=== PATIENT | female | born 1995 | race Caucasian/White ===

== ENCOUNTER 2020-07-21 17:52 | Outpatient (CLI) | payer OTHER | END 2020-07-21 18:40 | disposition home or self-care (01) | LOC: D.LDO 17:52 | PROVIDERS: ATTEND Obstetrics & Gynecology | DX: O16.9 Unspecified maternal hypertension, unspecified trimester (principal) ==

== ENCOUNTER → 2020-07-24 11:52 | Outpatient (CLI) | payer OTHER | END | disposition home or self-care (01) | LOC: D.LDO 11:52 | PROVIDERS: ATTEND Obstetrics & Gynecology | DX: O35.9XX0 Maternal care for (suspected) fetal abnormality and damage, unspecified, not applicable or unspecified (principal) ==

== ENCOUNTER 2020-07-30 17:31 | Outpatient (CLI) | payer OTHER | END 2020-07-30 18:02 | disposition home or self-care (01) | LOC: D.LDO 17:31 | PROVIDERS: ATTEND Student in an Organized Health Care Education/Training Program | DX: O16.9 Unspecified maternal hypertension, unspecified trimester (principal) ==

== ENCOUNTER → 2020-08-02 12:30 | Outpatient (CLI) | payer OTHER | END | disposition home or self-care (01) | LOC: D.LDO 12:30 | PROVIDERS: ATTEND Obstetrics & Gynecology | DX: O13.9 Gestational [pregnancy-induced] hypertension without significant proteinuria, unspecified trimester (principal) ==

== ENCOUNTER → 2020-08-06 10:00 | Outpatient (CLI) | payer OTHER | END | disposition home or self-care (01) | LOC: D.LDO 10:00 | PROVIDERS: ATTEND Obstetrics & Gynecology | DX: O16.9 Unspecified maternal hypertension, unspecified trimester (principal) ==

== ENCOUNTER 2020-08-09 10:44 | Outpatient (CLI) | payer OTHER | END 2020-08-09 14:16 | disposition home or self-care (01) | LOC: D.LDO 10:44 | PROVIDERS: ATTEND Obstetrics & Gynecology | DX: O16.9 Unspecified maternal hypertension, unspecified trimester (principal) ==

== ENCOUNTER 2020-08-10 10:36 | Outpatient (CLI) | payer OTHER ==
--- NOTE | 2020-08-11 06:02 | NUR ---
PT RESTING WITH EYES CLOSED, RESP QUIET, NO DISTRESS NOTED, LEFT UNDISTURBED AT THIS TIME, FOB ASLEEP AT BEDSIDE
--- NOTE | 2020-08-11 06:57 | NUR ---
SHIFT REPORT TO DAY SHIFT
--- NOTE | 2020-08-11 13:59 | NUR ---
DR. BROWN ON UNIT. BPP AND MONITORING STRIP REVIEWED BY MD. CASTANO COMPLETED BY DR. BROWN. RESULTS REVIEWED. AT 1300 MD ORDERED TO DISCONTINUE IV FLUIDS. PT DENIES PAIN OR DISCOMFORT. PO FLUIDS PROVIDED. NO OTHER NEEDS OR CONCERNS VERBALIZED.
--- NOTE | 2020-08-11 15:09 | NUR ---
DR BROWN ON UNIT TO ASSESS PT. REVIEWED BPP, VITALS AND NST STRIP. FERN WAS COMPLETED AND RESULTS WERE REVIEWED BY DR. BROWN. FLUIDS D/C'D. PT INSTRUCTED TO RETURN TOMORROW 08/12/[address] YU TO ASSESS. ALL CARE AND DISCHARGE INSTRUCTIONS PROVIDED BY DR. BROWN. PIV DISCONTINUED AND DISCHARGE INSTRUCTIONS TO BE PREPARED. PT INSTRUCTED TO RETURN TO [facility] AND DELIVERY UNIT IF ANY NEEDS OR CONCERNS MAY ARISE. PT VERBALIZES UNDERSTANDING.
[2020-08-15 06:21] VITALS: BMI 26.6
== END 2020-08-11 15:15 | disposition home or self-care (01) ==
LOC: D.LD 10:36 → D.LDO 10:36 → D.LD 16:39 → D.LDO 08-11 15:15
PROVIDERS: ATTEND Obstetrics & Gynecology
DX: O36.5990 Maternal care for other known or suspected poor fetal growth, unspecified trimester, not applicable or unspecified (principal)

== ENCOUNTER 2020-08-12 09:08 | Outpatient (CLI) | payer OTHER ==
[2020-08-15 06:21] VITALS: BMI 26.6
== END 2020-08-12 09:50 | disposition home or self-care (01) ==
LOC: D.LDO 09:08
PROVIDERS: ATTEND Obstetrics & Gynecology
DX: O35.9XX0 Maternal care for (suspected) fetal abnormality and damage, unspecified, not applicable or unspecified (principal); O36.5990 Maternal care for other known or suspected poor fetal growth, unspecified trimester, not applicable or unspecified

== ENCOUNTER 2020-08-15 05:51 | Inpatient (IN) | payer OTHER ==
[~2020-08-15] VITALS: Ht 175.3 cm; Wt 81.6 kg
[2020-08-15 06:21] VITALS: BP 134/88; Ht 175.3 cm; Wt 81.6 kg
[2020-08-15] MEDS ORDERED: PRENAVITE1 TAB PO (06:21)
[2020-08-15 06:44] LABS: HEMATOCRIT 37.5 % (36.0-48.0); HEMOGLOBIN 12.7 g/dL (12-16); MCH 31.5 pg (26.0-34.0); MCHC 33.8 g/dL (31.0-37.0); MCV 93.3 fL (80.0-100.0); MEAN PLATELET VOLUME 8.4 fL (7.4-10.4); RBC 4.02 10x6/uL (4.00-5.40); RDW 13.8 % (11.5-14.5); WBC 17.5 10x3/uL (4.8-10.8)
[2020-08-15 06:50] LABS: UDS - AMPHET NEGATIVE QUAL (NEGATIVE); UDS - BARB NEGATIVE QUAL (NEGATIVE); UDS - BENZO NEGATIVE QUAL (NEGATIVE); UDS - COCAINE NEGATIVE QUAL (NEGATIVE); UDS - OPIATE NEGATIVE QUAL (NEGATIVE); UDS - PCP NEGATIVE QUAL (NEGATIVE); UDS - THC NEGATIVE QUAL (NEGATIVE)
[2020-08-16] VITALS (12 sets, daily range): BP systolic 116–135; BP diastolic 58–83
[2020-08-16 08:14] LABS: RAPID PLASMA REAGIN Non Reactive (Non Reactive)
--- NOTE | 2020-08-16 11:27 | NUR ---
L&D RN CALLED TO ROOM TO ASSESSFUNUS. SITUATION OK PER HER.
--- NOTE | 2020-08-16 11:45 | NUR ---
RECEIVED PT TO LD POST OP C/S, TO ROOM 1273. PT HAS LARGE WHITE DSG OVER LT INCISION, C/D/I. ICE PACK PLACED OVER GOWN TO INCISION. FUNDUS FIRM, U/2, SMALL RUBRA LOCHIA, NO CLOTS. NEW PERIPADS PLACED. SCDS ON AND CONNECTED. PT RATING PAIN TO INCISIONAL AREA 1/10. BLACK CATH IN PLACE DRAINING LIGHT YELLOW URINE, SEE I/O. SRUP X2, CALL LIGHT AND PHONE WITHIN REACH. SEE FLOWSHEET FOR FULL ASSESSMENT.
[2020-08-16 15:51] LABS: BASOPHILS 0.4 % (0-2); EOSINOPHILS 0.2 % (0-7); HEMATOCRIT 31.5 % (36.0-48.0); HEMOGLOBIN 10.5 g/dL (12-16); LYMPHOCYTES 11.7 % (15-50); MCH 31.5 pg (26.0-34.0); MCHC 33.5 g/dL (31.0-37.0); MEAN PLATELET VOLUME 8.4 fL (7.4-10.4); MONOCYTES 6.8 % (2-11); NEUTROPHILS 80.9 % (40-80); PLATELET COUNT 207 10x3/uL (130-400); RBC 3.35 10x6/uL (4.00-5.40); RDW 13.1 % (11.5-14.5); WBC 17.1 10x3/uL (4.8-10.8)
--- NOTE | 2020-08-16 18:00 | NUR ---
FUNDUS FIRM, U/2, SMALL RUBRA LOCHIA, NO CLOTS EXPELLED. INCISIONAL DSG REMAINS C/D/I. PERINEUM CLEANESED WITH WARM WET WASHCLOTHS, NEW PERIPADS/TOWELS/CHUX PROVIDED. PT'S POSITION CHANGED TO RIGHT LATERAL, PILLOW PLACED FOR SUPPORT AND COMFORT. NEW ICE PACK PLACED OVER GOWN TO INCISION, INCENTIVE SPIROMETER PROVIDED WITH INSTRUCTIONS. LARGE ICE WATER SERVED. SEE EMAR FOR ALL MEDS ADM BY THIS RN. WELDER PLASTIC BUTTON WITHIN REACH. SRUP X2, CALL LIGHT AND PHONE WITHIN REACH.
--- NOTE | 2020-08-16 19:00 | NUR ---
BEDSIDE SHIFT REPORT RCVD FROM Rebecca PETERS RN. PT LYING IN RT LATERAL TILT, PROPPED WITH PILLOWS FOR COMFORT AND SUPPORT. PT RATES PAIN 4/10 AT THIS TIME. EDUCATED ON SUPERVISOR FRAME SAMPLE AND PATTERN BUTTON. VERBALIZED UNDERSTANDING. EDUCATION PROVIDED ON I.S. WITH RETURN DEMONSTRATION UP TO 1999. FUNDUS FIRM, U/1. SCANT LOCHIA RUBRA NOTED TO PERIPAD. HR-RRR, PPP, LUNGS CTAB, BS ACTIVE X4. LARGE FOAM TAPED DRESSING NOTED TO LOWER ABD OVER LOW TRANSVERSE INCISION. DRESSING C/D/I. SCD'S IN PLACE, PUMP ON AND FUNCTIONING PROPERLY. PIV TO LEFT HAND PATENT WITH NO ERYTHEMA OR EDEMA NOTED TO SITE. SHIFT ASSESSMENT COMPLETED. SEE FLOWSHEET. BED LOW, WHEELS LOCKED, CL AND PHONE WITHIN REACH, SIDE RAILS UP X2.
--- NOTE | 2020-08-16 20:00 | NUR ---
CURRENT PITOCIN INFUSION COMPLETE. OLD BAG DOWN, NEW BAG UP TO PRESENT TUBING AND SET TO INFUSE AT 125ML/HR VIA ALARIS PUMP. PT DENIES NEEDS AT THIS TIME.
--- NOTE | 2020-08-16 22:40 | NUR ---
ROUNDS MADE. PT LYING SUPINE WITH HOB 30 DEGREES. RATES PAIN 5/10 AND REPORTS SHE JUST HIT HER [employer] BUTTON. 315 ML CLEAR YELLOW URINE EMPTIED FROM UROMETER. FUNDUS REMAINS FIRM U/1. FOB SITTING ON COUCH AT BEDSIDE ATTEMPTING TO FEED . INFANT UNWRAPPED AND FUSSY. FOB REPORTS HAVING TROUBLE GETTING TO FEED. INFANT SWADDLED IN BLANKET X1, DEMONSTRATION OF PROPER FEEDING TECHNIQUES AND POSITIONING OF WHILE FEEDING PROVIDED. PLACED BACK IN FOB'S ARMS AND HE CONTINUED FEEDING. NO FURTHER NEEDS VOICED AT THIS TIME.
--- NOTE | 2020-08-17 00:29 | NUR ---
PT RATES PAIN 4/10 AT THIS TIME. TORADOL GIVEN SIVP PER ORDERS. SEE EMAR FOR ADMINISTRATION. PT CURRENTLY FEEDING . ADVISE TO CALL OUT RESTORATION OFFICER LIGHT WHEN FINISHED WITH INFANT FEEDING FOR LOCHIA ASSESSMENT. UNDERSTANDING VERBALIZED.
--- NOTE | 2020-08-17 01:10 | NUR ---
PT RINGS CALL LIGHT REPORTING SHE IS FINISHED FEEDING . RN TO BEDSIDE. PT REPOSITIONED TO LT LATERAL TILT, PROPPED WITH PILLOWS FOR COMFORT AND SUPPORT. MOD LOCHIA RUBRA NOTED TO PERIPAD. PAD CHANGED. 250 ML CLEAR YELLOW URINE EMPTIED FROM UROMETER. PT DENIES FURTHER NEEDS AT THIS TIME. WILL CONTINUE TO MONITOR.
[2020-08-17 03:00] VITALS: BP 122/74
--- NOTE | 2020-08-17 03:07 | NUR ---
ROUNDS MADE. PT AWAKENED UPON NURSE ENTERING ROOM. PT DENIES NEEDS AT THIS TIME.
--- NOTE | 2020-08-17 05:30 | NUR ---
ROUNDS MADE. BLACK CATHETER EMPTIED. REPOSITIONED PT TO RT LATERAL TILT. PT DENIES NEEDS AT THIS TIME.
[2020-08-17 06:19] LABS: BASOPHILS 0.3 % (0-2); EOSINOPHILS 0.5 % (0-7); HEMATOCRIT 29.3 % (36.0-48.0); HEMOGLOBIN 10.3 g/dL (12-16); LYMPHOCYTES 14.9 % (15-50); MCH 32.8 pg (26.0-34.0); MCHC 35.2 g/dL (31.0-37.0); MCV 93.3 fL (80.0-100.0); MEAN PLATELET VOLUME 8.3 fL (7.4-10.4); MONOCYTES 7.1 % (2-11); NEUTROPHILS 77.2 % (40-80); PLATELET COUNT 178 10x3/uL (130-400); RBC 3.14 10x6/uL (4.00-5.40); RDW 13.3 % (11.5-14.5); WBC 14.1 10x3/uL (4.8-10.8)
--- NOTE | 2020-08-17 06:20 | NUR ---
TORADOL GIVEN PER ORDERS. SEE EMAR FOR ADMINISTRATION. PT REPOSITIONED TO LT LATERAL TILT. PROPPED WITH PILLOWS FOR COMFORT AND SUPPORT. MOD LOCHIA RUBRA NOTED TO PERIPAD. NO CLOTS EXPRESSED WITH FUNDAL CHECK, FUNDUS FIRM, U/1. PERIPAD CHANGED. NO FURTHER NEEDS VOICED. WILL CONTINUE TO MONITOR.
[2020-08-17 07:18] VITALS: BP 116/64
--- NOTE | 2020-08-17 07:45 | NUR ---
AM ASSESSMENT COMPLETED, SEE FLOWSHEET. FUNDUS FIRM, U/1, SMALL RUBRA LOCHIA, NO CLOTS EXPELLED. LARGE ICE WATER SERVED. PT INSTRUCTED ON USE OF INCENTIVE SPIROMETER, PT ENCOURAGED TO USE 5-10 TIMES AN HOUR WHILE AWAKE. PT ALSO PERFORMS COUGHING EXERCISES. SIG OTHER AT BEDSIDE. BOTH DENY ALL NEEDS. SR UP X 2, CL/PHONE WITHIN REACH.
--- NOTE | 2020-08-17 07:45 | NUR ---
DR. YU AT [facility], WITH WBC, AND HGB COUNTS REVIEWED, STATES HE WILL ROUND ON HER AFTER HIS FIRST CASE.
--- NOTE | 2020-08-17 09:05 | NUR ---
TO PT'S ROOM, PT IS HOLDING , SITTING UP IN THE BED. HANDS TO SIG OTHER. PLAN OF CARE DISCUSSED WITH PT. FUNDUS FIRM, U/1, SMALL RUBRA LOCHIA, NO CLOTS. BLACK CATH REMOVED WITH 700 MLS LIGHT YELLOW URINE. PERICARE DONE WITH WARM WET WASHCLOTHS. NEW PERIPADS APPLIED. IV SL, FLUSHED WITH 10 CCS NS, NO REDNESS OR SWELLING NOTED TO IV SITE. LARGE ICE WATER SERVED. SRUP X2, CALL LIGHT AND PHONE WITHIN REACH.
--- NOTE | 2020-08-17 12:15 | NUR ---
PT CALLS OUT SUPERVISOR SLITTING AND SHIPPING LIGHT REQUESTING TO GET UP TO THE BATHROOM TO PEE. TO ROOM, PT ASSISTED UP TO BR, GAIT SLOW AND STEADY. PT VOIDS 600 MLS IN [place] HAT. PERICARE DONE WITH WARM WATER PERIBOTTLE, AND WARM WET WASHCLOTHS. CLEAN GOWN, PERIPADS/PANTIES ON, WITH BED LINENS CHANGED. PT THEN BACK TO BED, SRUP X2, CALL LIGHT AND PHONE WITHIN REACH. LARGE ICE WATER SERVED. SIG OTHER AT BEDSIDE. PT DENIES ALL OTHER NEEDS.
[2020-08-17 13:40] VITALS: BP 128/70
--- NOTE | 2020-08-17 13:40 | NUR ---
PT CALLS OUT SCREW MACHINE SET UP OPERATOR LIGHT REQUESTING PAIN MEDICATION. PERCOCET 10 MG ONE PO GIVEN FOR C/O PAIN 07/07. PT STATES SHE CAN TELL THE PAIN IS COMING BACK, ALL THE MOVING AROUND SHE HAS DONE. SHE STATES THE PERCOCET AND IBUPROFEN HAS WORKED WELL. MEDICATION ADM TIMES AND RECORD REVIEWED WITH PT. PT DENIES ALL NEEDS AT THIS TIME. SR UPX 2, CL/PHONE WITHIN REACH.
--- NOTE | 2020-08-17 14:40 | NUR ---
RATES PAIN AT 2/10, BONDING WITH INFANT WITHOUT COMPLAINTS. SIDE RAILS UP X 2 WITH CALL LIGHT IN REACH.
--- NOTE | 2020-08-17 16:02 | NUR ---
PT RESTING AT THIS TIME. PT AROUSES AND RATES HER PAIN A 0/10 ON NUMERIC SCALE. PT DENIES NEEDS OR CONCERNS AT THIS TIME.
[2020-08-17 16:09] LABS: CHLAMYDIA TRACHOMATIS, NAA Negative (Negative)
--- NOTE | 2020-08-17 16:28 | NUR ---
MOTRIN GIVEN SCANNED TO EMAR. RATES PAIN AT 5/10. IN CRIB AT BEDSIDE AND SIG OTHER PRESENT.
--- NOTE | 2020-08-17 17:00 | NUR ---
CALLED TO ROOM, PT STATES THAT SHE VOIDED AGAIN, 700ML CLEAR URINE NOTED TO COLLECTION HAT. EXPLAINED THAT SHE NO LONGER HAD TO MEASURE VOIDS.
--- NOTE | 2020-08-17 18:08 | NUR ---
PAIN MED GIVEN SCANNED TO EMAR. SALINE LOCK REMOVED INTACT DUE TO PT C/O OF ITCHING AT SITE. TOWELS PLACED IN BATHROOM AND SHE UNDERSTANDS THAT SHE MAY SHOWER AT ANYTIME JUST CALL NURSE WHEN SHE DOES SO THAT BED LINENS COULD BE CHANGED. IN ROOM BEING HELD BY FOB. CALL LIGHT IN REACH WITH SIDE RAILS UP X 2.
[2020-08-17 20:00] VITALS: BP 127/69
--- NOTE | 2020-08-17 20:00 | NUR ---
RN TO BEDSIDE. PT LYING SUPINE IN BED WITH HOB 45 DEGREES, HOLDING ATTEMPTING TO BURP HIM. PT RATES PAIN 2/10 AND TOLERABLE AT THIS TIME. SHIFT ASSESSMENT COMPLETED AT THIS TIME. SEE FLOWSHEET. HR-RRR, PPP, LUNGS CTAB, BS ACTIVE X4. FUNDUS REMAINS FIRM, SCANT LOCHIA RUBRA REPORTED WHEN PT VOIDING. NO FURTHER NEEDS VOICED AT THIS TIME. BED LOW, WHEELS LOCKED, CALL LIGHT AND PHONE WITHIN REACH, SIDE RAILS UP X2.
--- NOTE | 2020-08-17 22:49 | NUR ---
PT CALLS OUT REQUESTING PAIN MEDICATION. PERCOCET 10/325MG X1 TAB GIVE FOR PAIN RATED 5/10. PT DENIES FURTHER NEEDS AT THIS TIME. WILL CONT TO MONITOR.
--- NOTE | 2020-08-18 00:15 | NUR ---
ROUNDS MADE. PT LYING SUPINE WITH HOB 30 DEGREES. UP IN ARMS BONDING. PT RATES PAIN 2/10 AND TOLERABLE. DENIES NEEDS AT THIS TIME.
--- NOTE | 2020-08-18 01:48 | NUR ---
PT. LYING IN SEMI FOWLERS POSITION UPON ENTERING ROOM. INTRODUCED SELF TO PT. NURSE TO CONTINUE CARE THE REMAINDER OF THIS SHIFT. PT. VERBALIZES UNDERSTANDING. PT. RATES PAIN AT "5" ON 0-10 SCALE AND INQUIRES WHEN SHE MAY HAVE PAIN MEDICATION AGAIN. INSTRUCTED PT. THAT I WILL BRING HER AN IBUPROFEN NOW AND THAT HER PERCOCET CAN BE GIVEN AGAIN IN ANOTHER HOUR. INQUIRED IF PT. HAS AN ICE PACK OVER INCISION AT THIS TIME. PT. DENIES BUT REPORTS "YES, I WOULD LIKE ONE NOW".
--- NOTE | 2020-08-18 01:54 | NUR ---
PT. MEDICATED WITH MOTRIN 600 MG 1 TAB ORDERED PER MD AND AT PT. REQUEST. ICE PACK APPLIED TO BIKINI LINE INCISION. LARGE CUP OF ICE WATER PROVIDED AT THIS TIME. INSTRUCTED PT. THAT I WILL RETURN IN AN HOUR WITH HER PERCOCET. PT. VERBALIZES UNDERSTANDING AND REQUEST LIGHTS BE TURNED DOWN AT THIS TIME.
--- NOTE | 2020-08-18 03:35 | NUR ---
PT. APPEARS TO BE RESTING COMFORTABLY. NO SIGNS OF DISTRESS NOTED. RESP. ARE EVEN AND UNLABORED. PT. NOT DISTURBED.
--- NOTE | 2020-08-18 06:27 | NUR ---
PT. SITTING UP IN SEMI FOWLERS POSITION HOLDING INFANT LOVINGLY. PT. REPORTS "YEAH, ITS STARTING TO HURT AGAIN" WHEN ASKED IF SHE IS HAVING ANY PAIN AT THIS TIME. PT. REPORTS PAIN IS AT "3-4" ON 0-10 SCALE. INSTRUCTED PT. THAT IT IS ABOUT 30 MINUTES BEFORE SHE MAY HAVE EITHER OF THE MOTRIN OR PERCOCET. PT. VERBALIZES UNDERSTANDING. INSTRUCTED PT. THAT I WILL BRING HER THE MEDICATION PRIOR TO LEAVING THIS MORNING. PT. VERBALIZES UNDERSTANDING AND DENIES FURTHER NEEDS AT THIS TIME.
--- NOTE | 2020-08-18 07:45 | NUR ---
AM ASSESSMENT COMPLETED CHARTED TO FLOWSHEET. PT RATES PAIN AT 3/10 AND STATES THAT SHE WOULD LIKE MOTRIN IF IT IS TIME. FUNDUS FIRM AT U/U WITH LIGHT BLEEDING, SHE DENIES CLOTS WITH VOIDS. BIKINI INCISION WITH JOSUE IS CLEAN AND DRY. IN CRIB AT BEDSIDE AND FOB PRESENT.
--- NOTE | 2020-08-18 08:06 | NUR ---
MOTRIN GIVEN SCANNED TO EMAR. NO OTHER NEEDS AT THIS TIME. CALL LIGHT IN REACH.
--- NOTE | 2020-08-18 10:45 | NUR ---
ROUNDS PER DR YU, DISCHARGE ORDERS RECEIVED.
[2020-08-18] MEDS ORDERED: IBUPROFEN600 MG PO (11:15)
[2020-08-18] MEDS ORDERED: PERCOCET 10-321 EAC1 PO (11:15)
--- NOTE | 2020-08-18 11:30 | NUR ---
VERBAL AND WRITTEN DISCHARGE INSTRUCTIONS GONE OVER, WRITTEN SCRIPT GIVEN TO PT FOR PERCOCET 10/325MG AND MOTRIN 600MG. SHE STATES UNDERSTANDING AND DENIES QUESTIONS. WILL CALL WHEN SHE IS DRESSED AND SECURED IN TO [employer].
--- NOTE | 2020-08-18 12:14 | NUR ---
PT TAKEN OUT BY WHEELCHAIR WITH SECURED IN TO [employer]. HOME BY PRIVATE CAR WITH FAMILY.
== END 2020-08-18 12:15 | disposition home or self-care (01) | DRG 787 ==
LOC: D.LD 05:51
PROVIDERS: Student in an Organized Health Care Education/Training Program; ADMIT Obstetrics & Gynecology; ATTEND Obstetrics & Gynecology
PROC: 3E033VJ Introduction of Other Hormone into Peripheral Vein, Percutaneous Approach (ICD-10-PCS; 2020-08-15)
PROC: 3E0P7VZ Introduction of Hormone into Female Reproductive, Via Natural or Artificial Opening (ICD-10-PCS; 2020-08-15)
PROC: 10D00Z1 Extraction of Products of Conception, Low, Open Approach (ICD-10-PCS; principal; 2020-08-16 09:00)
DX: O62.1 Secondary uterine inertia (principal); O41.03X0 Oligohydramnios, third trimester, not applicable or unspecified; O10.92 Unspecified pre-existing hypertension complicating childbirth; Z3A.37 37 weeks gestation of pregnancy; Z37.0 Single live birth; O36.5930 Maternal care for other known or suspected poor fetal growth, third trimester, not applicable or unspecified